=== PATIENT | female | born 1955 | race Caucasian/White ===

== ENCOUNTER 2024-11-19 11:18 | Outpatient (CLI) | payer BC, SELFPAY | END 2024-11-19 11:19 | disposition home or self-care (01) | LOC: AMB 11-21 09:58 | PROVIDERS: PCP Obstetrics & Gynecology; Visit Provider Family Medicine | DX: S69.92XA Unspecified injury of left wrist, hand and finger(s), initial encounter (principal); V49.49XA Driver injured in collision with other motor vehicles in traffic accident, initial encounter; Y92.410 Unspecified street and highway as the place of occurrence of the external cause | CPT/HCPCS: A0998 ==

== ENCOUNTER 2024-11-19 11:58 | Emergency (ER) | payer OTHER, BC, SELFPAY ==
--- OUTSIDE RECORDS SUMMARY | 2024-11-19 12:01 | XMS_ITS | Clinical Summary ---
Author Organization [facility] Address [address] [place] [id number] Care Team Providers Care Air Quality Engineer Name Role Phone Ema Hernandez Primary Care Provider Allergies Active Allergy Reactions Criticality Noted Date Comments Azithromycin Nausea Only 01/23/2015 Codeine Nausea Only 01/23/2015 Erythromycin Vomiting 10/04/2015 Medications ketoconazole 2% shampoo (NIZORAL) 2 % shampoo 5 6 Active cholecalciferol (VITAMIN D-3) 2,000 unit capsule Take 1 capsule by mouth once daily. 0 7 Active trimethoprim-prashanth ymyxin b (POLYTRIM) ophthalmic solutionIndicati ons:Conjunctivit is, allergic, bilateral Place 1 Drop into both eyes four times daily. 10 mL 3 Active triamcinolone (ARISTOCORT; KENALOG) 0.1 % creamIndications :Skin irritation Apply topically to affected area(s) three times daily. 28.4 g 3 Active neomycin-polymyx in-dexAMETHasone (MAXITROL) ophthalmic ointment APPLY A SMALL AMOUNT ONTO THE LOWER LID OF BOTH EYES THREE TIMES DAILY 2 Active hydrocortisone (HYTONE) 2.5 % ointment APPLY SMALL AMOUNT TO EYELIDS TWICE A DAY FOR 2 WEEKS , THEN REPEAT NEEDED FOR FLARES 3 Active erythromycin ophthalmic ointment 0.5%Indications: Hordeolum externum of right lower eyelid Apply 1 Strip to right eye 6 times daily. 3.5 g 4 Active omeprazole (PRILOSEC) 40 mg Delayed-Release capsuleIndicatio ns:Dysphagia, unspecified type TAKE 1 CAPSULE BY MOUTH DAILY 30 TO 60 MINUTES BEFORE A MEAL 90 Capsule 3 4 Active famotidine (PEPCID) 20 mg tabletIndication s:Dysphagia, unspecified type,Esophagitis Take 1 Tablet (20 mg) by mouth two times daily. 180 Tablet 3 4 Active omeprazole 20 mg tabletIndication s:Gastroesophage al reflux disease without esophagitis Take 1 Tablet (20 mg) by mouth two times daily. Twice daily before a meal 180 Tablet 3 4 Active valACYclovir (VALTREX) 1 gram tabletIndication s:Hx of cold sores TAKE 2 TABLETS BY MOUTH TWICE DAILY AT ONSET OF COLD SORES 21 Tablet 5 Active Active Problems Problem Noted Date Diagnosed Date Gastroesophageal reflux dise ase with esophagitis without hemorrhage 12/18/2022 Overview (11/20/2023): EGD 11/2021 esophagitis EGD 11/202324 grade B esophagitis, omeprazole 40 mg Diverticulosis of large intestine without hemorr debbie 03/09/2015 Overview (03/09/2015): Colonoscopy 02/2015 diverticulosis repeat in 10 years Resolved Problems Problem Noted Date Diagnosed Date Resolved Date Gastroesophageal reflux dise ase without esophagitis 01/23/2015 01/05/2023 Encounters Date Type Department Care Team Description 10/07/2024 Telephone [facility] [address] [place] [address] Ema Hernandez PA Referral from Last 3 Months Immunizations Immunization Administration Dates Next Due COVID-19 vaccine (Moderna 100mcg/0.5mL) PF, MDV 09/20/2020 DTaP 10/08/2005 Hepatitis A (Adult) 10/08/2005 Influenza, IIV3 (Age 6-35 mos) 05/11/2013 Td (Age >=7 Years) 09/05/2019 Td, Preservative Free (age >= 7 Years) 2 Tdap 08/24/2009,10/08/2005 Zoster (Shingrix-RZV, recombinant) 01/05/2023 Family History Medical History Relation Name Comments Cirrhosis Brother Throat cancer Brother Cancer Father lung CA- at age 73, lung CA-cousin, lung CA-2 uncles Diabetes Father Cancer-colon Maternal Grandfather Aneurysm Mother Heart attack Mother Cancer Other [address] cousin, pa ternal, lung ca Cancer Paternal Uncle 1 2 with lung ca, cardiac illness Diabetes Paternal Uncle 2 2 Osteoporosis Sister Psychiatric illness Son bipolar Relation Name Status Comments Brother Father Maternal Grandfather Mother (Age 69) Other Paternal Uncle 1 Paternal Uncle 2 Sister Son Social History Tobacco Use Types Packs/Day Years Used Date Smoking Tobacco: Former Smokeless Tobacco: Never Tobacco Cessation:Counseling Given: Yes Alcohol Use Standard Drinks/Week Comments Yes 0 (1 standard drink = 0.6 oz pur e alcohol) weekly, 2 drinks PHQ-2 Answer Date Recorded PHQ-2 TOTAL SCORE 0 01/05/2023 Social Connections Answer Date Recorded Do you often feel lonely or isolated from those around you? 0 12/30/2023 Financial Resource Strain Answer Date R ecorded Difficulty of Paying Living Expenses 3 12/30/2023 Difficulty of Paying Living Expenses Not on file 12/30/2023 Food Insecurity Answer Date Recorded Do you worry your food will run out before you are able to buy more? 1 12/30/2023 Transportation Needs Answer Date Record ed Does lack of transportation keep you from medica l appointments? 1 12/30/2023 Does lack of transportation keep you from work, meetings or getting things that you need? 1 12/30/2023 Housing Stability Answer Date Recorded What is your housing situation today? 1 12/30/2023 Utilities Answer Date Recorded Do you have trouble paying f or utilities (for example, heat, electricity, water, phone)? 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 Gender Identity Not on file Sexual Orientation Not on file Obstetrics History Para Term AB IAB SAB Ectopic Multiple Livin g Live Births 3 3 3 3 Date Outcome GA Total Labor Labor/2nd/3rd Weight Sex Type Anes PTL Aliza A1 A5 Name Clin Term Term Term Last Filed Vital Signs Vital Sign Reading Time Taken Comments Blood Pressure 115/78 12/30/2023 9:21 AM CDT Pulse 67 12/30/2023 9:21 AM CDT Temperature 36.6 C (97.8 F) 12/14/2023 2:11 PM CDT Respiratory Rate 18 12/14/2023 2:11 PM CDT Oxygen Saturation 97% 12/30/2023 9:21 AM CDT Inhaled Oxygen Concentration - - Weight 74.6 kg (164 lb 8 oz) 12/30/2023 9:21 AM CDT Height 158.8 cm (5' 2.5) 12/30/2023 9:21 AM CDT Body Mass Index 29.61 12/30/2023 9:21 AM CDT Plan of Treatment Health Maintenance Due Date Last Done Comments Pneumococcal series for age 50+ (1 of 1 - PCV) 2004 RSV vaccine for adults or (1 - Risk 60-74 years 1-dose series) 2014 Zoster (shingles) series for age 50+ (2 of 2) 03/02/2023 01/05/2023 Depression screening for age 12+ 01/06/2024 01/05/2023, 12/24/2022, 09/27/2021, Additional history exists COVID-19 vaccine series ( season) 2024 07/07/2022, 03/10/2022, 06/06/2021, Additional history exists BMI (ht and wt on same day) for age 18+ 12/29/2024 12/30/2023, 10/07/2023, 01/05/2023, Additional history exists Mammogram for age 45-75 01/04/2025 01/05/20 24, 01/01/2023, 12/03/2020, Additional history exists Influenza Vaccine (Season Ended) 2025 05/11/20 13 Colonoscopy through age 75 08/13/202808/13, 03/09/2015, 03/09/2015 Lipids for age 45-75 12/29/2028 12/30/2023, 01/05/2023, 10/17/2020, Additional history exists Tetanus booster 09/05/2029 09/05/2019, 05/0 02/2012, 08/24/2009, Additional history exists Tdap Completed 08/24/2009, 10/08/2005 Hepatitis C screening for ag e 18-79 Completed 01/25/2015 DEXA/DXA scan for age 65+ Completed 2020, 08/12/2018 (Completed outside of [facility]), 01/25/2015 Procedures Procedure Name Priority Date/Time Associated Diagnosis Comments XR MAMMO BENJA BILAT SCREEN Routine 01/05/2024 7:12 AM CDT Visit for screening mammogram LIPID PANEL W REFLEX MEASURED LDL Routine 12/30/2023 10:07 AM CDT Screening cholesterol level XR DXA BONE DENSITY 2 SITES AXIAL Routine 10/18/2020 8:55 AM CDT Post-menopausal SCAN-COLONOSCOPY 08/13/2018 12:0 0 AM JET HANDLER ANTI HCV Routine 01/25/2015 8:26 AM CDT Need for hepatitis C screening test from Last 3 Months or Most Recently Relevant to Health Maintenance Results * XR MAMMO BENJA BILAT SCREEN (01/05/2024 7:12 AM CDT) Anatomical Region Laterality Modality BREASTS, Breast Left, Breast Right Bilateral Mammography Impressions 01/05/2024 3:47 PM CDT There is no radiographic evidence for malignancy. Recommend annual mammograms. MAMMOGRAM ASSESSMENT: ACR 1 Negative PATIENTS: You will also receive a letter with your examination results in an easy to read format. If you have questions about your results, please contact your referring provider. Narrative 01/05/2024 3:47 PM CDT For Patients: As a result of the 21st Century Cures Act, medical imaging exams and procedure reports are released immediately into your electronic medical record. You may view this report before your referring provider. If you have questions, please contact your health care provider. XR MAMMO BENJA BILAT SCREEN [[id number]] CLINICAL HISTORY: This is an asymptomatic 68 y.o. patient. INDICATION FOR EXAM: Mammogram Screening. TECHNIQUE: CC & MLO views were obtained. This study was evaluated with the assistance of Computer-Aided Detection. Breast Tomosynthesis was used in interpretation. COMPARISON FILM: Yes 01/01/23 [facility] 12/03/20 [facility] FINDINGS: There are scattered areas of fibroglandular density. There are no dominant masses, suspicious micro calcifications or areas of architectural distortion. Ema ADDISON MAMMO Final R esult * (ABNORMAL) LIPID PANEL W REFLEX MEASURED LDL (12/30/2023 10:07 AM CDT) CHOLESTEROL,TOTAL 208(H) 100 - 199 mg/dL 12/30/2023 5:08 PM CDT [facility] Comment: Cholesterol, Total Reference Ranges Desirable <200 mg/dL Borderline 200-239 mg/dL High >=240 mg/dL TRIGLYCERIDES 176(H) <150 mg/dL 12/30/2023 5:08 PM CDT [facility] HDL CHOLESTEROL 71 >40 mg/dL 5:08 PM CDT [facility] NON-HDL CHOLESTEROL 137 <145 mg/dl 12/30/2023 5:08 PM CDT [facility] CHOL/HDL RATIO 2.93 <4.50 12/30/2023 5:08 PM CDT [facility] LDL CHOLESTEROL 102 <=130 mg/dL 12/30/2023 5:08 PM CDT [facility] VLDL CHOLESTEROL 35(H) <=30 mg/dL 12/30/2023 5:08 PM CDT [facility] PROVIDER ORDERED STATUS RANDOM 12/30/2023 5:08 PM CDT [facility] Blood BLOOD SPECIMEN / Unknown Venipuncture / Unknown 12/30/2023 10:07 AM CDT 12/30/2023 10:09 AM CDT Ema ADDISON CHEMISTRY Final R esult [facility] [address] [place] [address], [place] * (ABNORMAL) XR DXA BONE DENSITY 2 SITES AXIAL (10/18/2020 8:55 AM CDT) Anatomical Region Laterality Modality Spine, HIPS, HIPL, HIPR Other Impressions 10/22/2020 9:30 AM CDT Osteopenia. RECOMMENDATIONS: The National Osteoporosis Foundation recommends pharmacologic treatment for patients with T-scores of -2.5 or less, patients with prior history of fragility fractures, or patients with 10-year probability of greater than 3% at hips or greater than 20% of suffering major osteoporotic fractures. Recommend continued optimization of calcium and vitamin D intake through dietary means and/or supplementation and regular exercise. Repeat scan recommended in 3-5 years. Ema Hernandez PA-C [facility] 10/22/2020 Narrative 10/22/2020 9:30 AM CDT XR DXA Bone Mineral Density (BMD) EXAM LOCATION: [address] [address] PATIENT NAME: Jacqui Mosquera DATE OF : 1955 EXAM DATE: 10/18/2020 REQUESTING PROVIDER: Ema Hernandez PA GENDER AT : female HEIGHT: 5' 1.97 (10/17/2020) WEIGHT: 160 lb 11.2 oz (10/17/2020) MENOPAUSAL STATUS: Postmenopausal RACE/ETHNICITY: White RISK FACTORS: FAMILY HISTORY OF OSTEOPOROSIS CURRENT MEDICATION FOR BONE LOSS: NONE INDICATION: FOLLOW UP OF EXISTING OSTEOPENIA COMPARISON DATE(S): 2014 DXA scans are compared to prior studies for a patient only when the two (or more) studies were performed on the same scanner. It is not possible to compare data generated on one scanner to data from another because there are not standards in DXA equipment. This applies even if the two scanners are made by the same facility maintenance helper. PROCEDURE: Dual-energy x-ray absorptiometry performed with routine technique. Reporting is completed in the form of a T-score. The T-score represents the standard deviation from peak bone mass based on young healthy adult. A Z-score is used for diagnosis in premenopausal women, and for men under the age of 50. FINDINGS: RESULT LUMBAR SPINE L1 - L4 BMD: 1.220 g/cm2 T-Score: 0.2 Z-Score: 1.6 Comparison to most recent scan: No change RESULT FEMORAL NECK Right Total Femoral Neck BMD: 0.886 g/cm2 T-Score: -1.1 Z-Score: 0.3 RESULT TOTAL HIP Bilateral Total Hip BMD: 0.965 g/cm2 T-Score: -0.3 Z-Score: 0.7 Comparison to most recent scan in 2015: Increase 0.9%. WHO criteria: Normal: T-score at or above -1 SD Osteopenia: T-score between -1.1 and -2.4 SD Osteoporosis: T-score at or below -2.5 SD FRAX RISK CALCULATION (USED FOR OSTEOPENIA ONLY): 10-year probability of major osteoporotic fracture: 8.2%. 10-year probability of hip fracture: 0.7%. us Ema ADDISON DEXA Final R esult * SCAN-COLONOSCOPY (08/13/2018 12:00 AM JET HANDLER) us Scanner OTHER Final Result * ANTI HCV (01/25/2015 8:26 AM CDT) HEPATITIS C ANTIBODY Non-Reacti ve Non-Reacti ve 01/25/2015 1:52 PM CDT [facility] [email or web address] [facility] Blood specimen (specimen) BLOOD SPECIMEN / Unknown Venipuncture / Unknown 01/25/2015 8:26 AM CDT 01/25/2015 8:26 AM CDT Narrative [facility] - 01/25/2015 1:52 PM CDT Antibodies to HCV not detected; does not exclude the possibility of exposure to HCV. us Yumiko Crowe NP SEND OUTS F inal Result [facility] [address] [place] [address], [place] from Last 3 Months or Most Recently Relevant to Health Maintenance Insurance [facility] [employer] Care Teams Air Quality Engineer Relationship Specialty Start Date End Date Ema Hernandez PA [address] [place], [place] [id number] PCP - General Physician Lan Support Specialist 10/17/20
[2024-11-19 12:06] VITALS: BP 149/96; PULSE 59; RESP 18; TEMP 36.4; O2SAT 97; BMI 28.0
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
--- OUTSIDE RECORDS SUMMARY | 2024-11-19 12:46 | XMS_ITS | Clinical Summary ---
Author Organization [facility] Address [address] [place] [id number] Care Team Providers Care Feather Cutting Machine Feeder Name Role Phone Ema Hernandez Primary Care [...] Type Department Care Team Description 10/07/2024 Telephone [facility] [address] [place] [address] Ema Hernandez PA Referral from [...] on file Legal Sex Female 5:40 AM GERIATRICIAN Gender Identity Not on file Sexual Orientation [...] 65+ Completed 2020, 08/12/2018 (Completed outside of [facility]), 01/25/2015 Procedures Procedure Name Priority Date/Time Associated Diagnosis Comments XR MAMMO BENJA BILAT SCREEN Routine 01/05/2024 7:12 AM CDT Visit for screening mammogram LIPID PANEL W REFLEX MEASURED LDL Routine 12/30/2023 10:07 AM CDT Screening cholesterol level XR DXA BONE DENSITY 2 SITES AXIAL Routine 10/18/2020 8:55 AM CDT Post-menopausal SCAN-COLONOSCOPY 08/13/2018 12:0 0 AM GERIATRICIAN ANTI HCV Routine 01/25/2015 8:26 AM CDT [...] care provider. XR MAMMO BENJA BILAT SCREEN [[id number]] CLINICAL HISTORY: This is an asymptomatic 68 y.o. patient. INDICATION FOR EXAM: Mammogram Screening. TECHNIQUE: CC & MLO views were obtained. This study was evaluated with the assistance of Computer-Aided Detection. Breast Tomosynthesis was used in interpretation. COMPARISON FILM: Yes 01/01/23 [facility] 12/03/20 [facility] FINDINGS: There are scattered areas of fibroglandular density. There are no dominant masses, suspicious micro calcifications or areas of architectural distortion. Ema ADDISON MAMMO Final R esult * (ABNORMAL) LIPID PANEL W REFLEX MEASURED LDL (12/30/2023 10:07 AM CDT) CHOLESTEROL,TOTAL 208(H) 100 - 199 mg/dL 12/30/2023 5:08 PM CDT [facility] Comment: Cholesterol, Total Reference Ranges Desirable <200 mg/dL Borderline 200-239 mg/dL High >=240 mg/dL TRIGLYCERIDES 176(H) <150 mg/dL 12/30/2023 5:08 PM CDT [facility] HDL CHOLESTEROL 71 >40 mg/dL 5:08 PM CDT [facility] NON-HDL CHOLESTEROL 137 <145 mg/dl 12/30/2023 5:08 PM CDT [facility] CHOL/HDL RATIO 2.93 <4.50 12/30/2023 5:08 PM CDT [facility] LDL CHOLESTEROL 102 <=130 mg/dL 12/30/2023 5:08 PM CDT [facility] VLDL CHOLESTEROL 35(H) <=30 mg/dL 12/30/2023 5:08 PM CDT [facility] PROVIDER ORDERED STATUS RANDOM 12/30/2023 5:08 PM CDT [facility] Blood BLOOD SPECIMEN / Unknown Venipuncture / Unknown 12/30/2023 10:07 AM CDT 12/30/2023 10:09 AM CDT Ema ADDISON CHEMISTRY Final R esult [facility] [address] [place] [address], [place] * (ABNORMAL) XR DXA BONE DENSITY [...] recommended in 3-5 years. Ema Hernandez PA-C [facility] 10/22/2020 Narrative 10/22/2020 9:30 AM CDT XR DXA Bone Mineral Density (BMD) EXAM LOCATION: [address] [address] PATIENT NAME: Jacqui Mosquera DATE OF : [...] two scanners are made by the same fisher spear. PROCEDURE: Dual-energy x-ray absorptiometry performed with routine [...] R esult * SCAN-COLONOSCOPY (08/13/2018 12:00 AM GERIATRICIAN) us Scanner OTHER Final Result * ANTI HCV (01/25/2015 8:26 AM CDT) HEPATITIS C ANTIBODY Non-Reacti ve Non-Reacti ve 01/25/2015 1:52 PM CDT [facility] [employer] [facility] Blood specimen (specimen) BLOOD SPECIMEN / Unknown Venipuncture / Unknown 01/25/2015 8:26 AM CDT 01/25/2015 8:26 AM CDT Narrative [facility] - 01/25/2015 1:52 PM CDT Antibodies to HCV not detected; does not exclude the possibility of exposure to HCV. us Yumiko Crowe NP SEND OUTS F inal Result [facility] [address] [place] [address], [place] from Last 3 Months or Most Recently Relevant to Health Maintenance Insurance [facility] [employer] Care Teams Feather Cutting Machine Feeder Relationship Specialty Start Date End Date Ema Hernandez PA [address] [place], [place] [id number] PCP - General Physician Retail Administrative Assistant 10/17/20
[2024-11-19] MEDS: KETOROLAC 10 MG TABLET PO (13:45)
[2024-11-19 14:00] VITALS: BP 151/109; PULSE 97; RESP 16
== END 2024-11-19 14:01 | disposition home or self-care (01) ==
PROVIDERS: Emergency Provider Emergency Medicine Emergency Medical Services; PCP Obstetrics & Gynecology
DX: S62.337A Displaced fracture of neck of fifth metacarpal bone, left hand, initial encounter for closed fracture (principal); V43.52XA Car driver injured in collision with other type car in traffic accident, initial encounter
CPT/HCPCS: 29125; 70450; 72125; 73130; 99284; A9270

== ENCOUNTER 2025-05-03 10:30 | Outpatient (RCR) | payer OTHER, BC, SELFPAY | END 2025-05-12 16:12 | disposition home or self-care (01) | PROVIDERS: PCP Physician Assistant Medical; Visit Provider Physician Assistant Medical | DX: M54.2 Cervicalgia (principal); M62.838 Other muscle spasm; V89.2XXD Person injured in unspecified motor-vehicle accident, traffic, subsequent encounter; Z51.89 Encounter for other specified aftercare | CPT/HCPCS: 97032; 97110; 97140; 97162; 97535 ==

== ENCOUNTER 2025-05-15 08:05 | Outpatient (CLI) | payer BC, SELFPAY ==
--- NOTE | 2025-05-15 09:10 | P.ANES_ITS ---
Anesthesia Charges Start Date/Time Anesthesia Start Date: 05/15/25 Anesthesia Start Time: 08:42 Stop Date/Time Anesthesia Stop Date: 05/15/25 Anesthesia Stop Time: 09:08 Coding CPT Codes CPT Codes: BHAVANI LWR INTST NDSC NOS - 73942 ([id number]) P2 - PATIENT W/MILD SYST DISEASE, QK - BUSINESS LAW TEACHER 2-4 CNCRNT ANES PROC, QX - TRANSMISSION DESIGN ENGINEER SVC W/ MD MED DIRECTION
--- NOTE | 2025-05-15 09:10 | W.ANESCHARGE ---
Anesthesia Charges Start Date/Time Anesthesia Start Date: 05/15/25 Anesthesia Start Time: 08:42 Stop Date/Time Anesthesia Stop Date: 05/15/25 Anesthesia Stop Time: 09:08 Coding CPT Codes CPT Codes: BHAVANI LWR INTST NDSC NOS - 14666 ([id number]) P2 - PATIENT W/MILD SYST DISEASE, QK - LEAD ASSISTANT MANAGER 2-4 CNCRNT ANES PROC, QX - PLASMA SPECIALIST SVC W/ MD MED DIRECTION
--- NOTE | 2025-05-15 09:42 | W.ANESCHARGE ---
Anesthesia Charges Start Date/Time Anesthesia Start Date: 05/15/25 Anesthesia Start Time: 08:42 Stop Date/Time Anesthesia Stop Date: 05/15/25 Anesthesia Stop Time: 09:08 Summary Extremes of Age - Over 70 or under 1: MDA Coding CPT Codes CPT Codes: ANES LWR INTST NDSC NOS - 87990 ([id number]) QK - TRANSMISSION REPAIRER 2-4 CNCRNT ANES PROC, QX - EQUINE PHARMACOLOGY TECHNICIAN SVC W/ MD MED DIRECTION, P2 - PATIENT W/MILD SYST DISEASE Additional Codes: Summary - Extremes of Age - Over 70 or under 1: SUSHMA ([id number])
== END 2025-05-15 08:06 | disposition home or self-care (01) ==
LOC: OP CLINIC 08:06
PROVIDERS: PCP Physician Assistant Medical; Visit Provider Internal Medicine
DX: Z12.11 Encounter for screening for malignant neoplasm of colon (principal); D12.5 Benign neoplasm of sigmoid colon; K57.30 Diverticulosis of large intestine without perforation or abscess without bleeding
CPT/HCPCS: 00811; 00812; 45380; 88305; 99100; J2704